=== PATIENT | male | born 1950 | race Caucasian/White ===

== ENCOUNTER → 2018-05-01 | Outpatient (CLI) | payer BC, MEDICARE | LOC: M.WC 09:27 | DX: S81.802A Unspecified open wound, left lower leg, initial encounter (principal); E78.00 Pure hypercholesterolemia, unspecified; J44.9 Chronic obstructive pulmonary disease, unspecified; F17.200 Nicotine dependence, unspecified, uncomplicated; F32.9 Major depressive disorder, single episode, unspecified; Z86.73 Personal history of transient ischemic attack (TIA), and cerebral infarction without residual deficits; Y28.8XXA Contact with other sharp object, undetermined intent, initial encounter; Y93.89 Activity, other specified; Y92.89 Other specified places as the place of occurrence of the external cause; Y99.8 Other external cause status ==

== ENCOUNTER → 2018-05-08 | Outpatient (CLI) | payer BC, MEDICARE | LOC: M.WC 03:56 | DX: L97.222 Non-pressure chronic ulcer of left calf with fat layer exposed (principal); E78.00 Pure hypercholesterolemia, unspecified; J44.9 Chronic obstructive pulmonary disease, unspecified; F17.200 Nicotine dependence, unspecified, uncomplicated; F32.9 Major depressive disorder, single episode, unspecified; Z86.73 Personal history of transient ischemic attack (TIA), and cerebral infarction without residual deficits ==

== ENCOUNTER → 2018-05-21 | Outpatient (CLI) | payer BC, MEDICARE | LOC: M.ULTRA 12:49 | DX: S81.802D Unspecified open wound, left lower leg, subsequent encounter (principal); I70.0 Atherosclerosis of aorta; X58.XXXD Exposure to other specified factors, subsequent encounter ==

== ENCOUNTER → 2018-05-23 | Outpatient (CLI) | payer BC, MEDICARE | LOC: M.WC 05:11 | DX: L97.222 Non-pressure chronic ulcer of left calf with fat layer exposed (principal); S81.802D Unspecified open wound, left lower leg, subsequent encounter; E78.00 Pure hypercholesterolemia, unspecified; J44.9 Chronic obstructive pulmonary disease, unspecified; F17.200 Nicotine dependence, unspecified, uncomplicated; F32.9 Major depressive disorder, single episode, unspecified; Z86.73 Personal history of transient ischemic attack (TIA), and cerebral infarction without residual deficits; W26.8XXD Contact with other sharp object(s), not elsewhere classified, subsequent encounter ==

== ENCOUNTER → 2018-05-30 | Outpatient (CLI) | payer BC, MEDICARE | LOC: M.WC 04:41 | DX: L97.222 Non-pressure chronic ulcer of left calf with fat layer exposed (principal); E78.00 Pure hypercholesterolemia, unspecified; J44.9 Chronic obstructive pulmonary disease, unspecified; F32.9 Major depressive disorder, single episode, unspecified; F17.200 Nicotine dependence, unspecified, uncomplicated; Z86.73 Personal history of transient ischemic attack (TIA), and cerebral infarction without residual deficits ==

== ENCOUNTER → 2018-06-06 | Outpatient (CLI) | payer BC, MEDICARE | LOC: M.WC 05:33 | DX: L97.222 Non-pressure chronic ulcer of left calf with fat layer exposed (principal); E78.00 Pure hypercholesterolemia, unspecified; J44.9 Chronic obstructive pulmonary disease, unspecified; F17.200 Nicotine dependence, unspecified, uncomplicated; F32.9 Major depressive disorder, single episode, unspecified; Z86.73 Personal history of transient ischemic attack (TIA), and cerebral infarction without residual deficits ==

== ENCOUNTER → 2018-06-13 | Outpatient (CLI) | payer BC, MEDICARE | LOC: M.WC 04:55 | DX: L97.222 Non-pressure chronic ulcer of left calf with fat layer exposed (principal); E78.00 Pure hypercholesterolemia, unspecified; J44.9 Chronic obstructive pulmonary disease, unspecified; F32.9 Major depressive disorder, single episode, unspecified; F17.200 Nicotine dependence, unspecified, uncomplicated; Z86.73 Personal history of transient ischemic attack (TIA), and cerebral infarction without residual deficits ==

== ENCOUNTER → 2019-06-03 | Outpatient (CLI) | payer BC, MEDICARE ==
[~2019-06-03] MED LIST: ASPIR 8181 M1 PO; LIDODERM1 EACH TOP; LIPITOR40 MG PO; LISINOPRIL10 MG PO
== END ==
LOC: M.PC 05-29 13:00
DX: M51.36 Other intervertebral disc degeneration, lumbar region (principal); M43.17 Spondylolisthesis, lumbosacral region; M47.819 Spondylosis without myelopathy or radiculopathy, site unspecified; M79.652 Pain in left thigh; M79.651 Pain in right thigh; I10 Essential (primary) hypertension; I63.9 Cerebral infarction, unspecified; F17.210 Nicotine dependence, cigarettes, uncomplicated

== ENCOUNTER → 2019-06-10 | Outpatient (CLI) | payer BC, MEDICARE ==
[~2019-06-10] MED LIST changes: +NORVASC 2.5 MG2.5 M1 PO
== END | disposition home or self-care (01) ==
LOC: M.PC 02:06
DX: M51.16 Intervertebral disc disorders with radiculopathy, lumbar region (principal); M54.5 Low back pain; M79.605 Pain in left leg; I10 Essential (primary) hypertension; F17.210 Nicotine dependence, cigarettes, uncomplicated; M47.26 Other spondylosis with radiculopathy, lumbar region; M48.061 Spinal stenosis, lumbar region without neurogenic claudication; M43.17 Spondylolisthesis, lumbosacral region; Z98.890 Other specified postprocedural states; Z79.899 Other long term (current) drug therapy; Z86.73 Personal history of transient ischemic attack (TIA), and cerebral infarction without residual deficits; Z79.82 Long term (current) use of aspirin